=== PATIENT | male | born 1990 | race Caucasian/White ===

== ENCOUNTER 2023-02-17 22:17 | Emergency (ER) | payer SELFPAY ==
[~2023-02-17] VITALS: Ht 175.3 cm; Wt 78.0 kg
[2023-02-17 22:24] VITALS: BP 140/86; O2SAT 96
[2023-02-17 22:51] VITALS: PULSE 84; RESP 16; TEMP 98.2
== END 2023-02-17 23:14 | disposition home or self-care (01) ==
LOC: ER 22:17
DX: F10.129 Alcohol abuse with intoxication, unspecified (principal); F17.200 Nicotine dependence, unspecified, uncomplicated; F31.9 Bipolar disorder, unspecified; Y90.9 Presence of alcohol in blood, level not specified
CPT/HCPCS: 82962; 99283